=== PATIENT | female | born 1940 | race Caucasian/White ===

== ENCOUNTER 2017-01-21 11:50 | Emergency (ER) | payer MEDICARE ==
[~2017-01-21] VITALS: Ht 172.7 cm; Wt 65.0 kg
[~2017-01-21 11:50] MED LIST: ACET325S8 PO; ALPR.25 PO; AMBI5TAB PO; ASPI325T PO; CETI10 PO; CYCL-36 PO; CYMB30CA PO; DOCU1CAP39 PO; DUONI NEB; FLUT50SP EACH NARE; FURO20 PO; GABA300 PO; LORTA5 PO; MIRA33502 PO; MORP30SU PO; NORC10TA2 PO; ONDA4 PO; OXYC20 PO; POTA10TA2 PO; ROBISYP6 PO; SENN8.6T15 PO; [UNRECOGNIZED DRUG - CODE] PO
[2017-01-21 11:54] VITALS: BP 170/75; PULSE 88; RESP 20; TEMP 98.3; O2SAT 95
[2017-01-21 12:01] VITALS: BP 170/75; PULSE 89; RESP 20; TEMP 98.3; O2SAT 99
[2017-01-21] MEDS ORDERED: DULO20 PO (12:05)
[2017-01-21] MEDS ORDERED: OXYC-404 PO (12:05)
[2017-01-21] MEDS ORDERED: CYCL1TAB29 PO (12:05)
[2017-01-21] MEDS ORDERED: MORP1TAB25 PO (12:05)
--- NOTE | 2017-01-21 12:13 | PD ---
HPI Chief Complaint: Chest Pain Time Seen by Provider: 11:59 (Donna Koehler MD) Travel History International Travel<30 days: No Contact w/Intl Traveler<30days: No Traveled to known affect area: No (Donna Koehler MD) History of Present Illness HPI This is a 77 year old female who presents to the emergency department with sharp intermittent chest pain, radiating down her left arm, associated with some shortness of breath lasting for several days. At first she thought it was indigestion but it has been worsening. Currently she has no chest pain in the emergency department. Pt. reports that she also has pain in her right calf. Pt. smokes 1 pack/day for 50 years. (Donna Koehler MD) PFSH Past Medical History Anxiety: Yes Depression: Yes Cancer: No Cardiovascular Problems: No Diabetes: No Diminished Hearing: No Endocrine: No Gastrointestinal Disorders: No Genitourinary: No Hepatitis: No Hiatal Hernia: No Hypertension: No Immune Disorder: No Implanted Vascular Access Dvce: Yes Insomnia: Yes Musculoskeletal: Yes (OA) Neurologic: No Psychiatric: Yes Reproductive: No Respiratory: No Thyroid Disease: No Menopausal: Yes (Donna Koehlre MD) Past Surgical History Abdominal Surgery: No AICD: No Body Medical Devices: SHANAE AND 2 SCREWS L HIP Cardiac Surgery: No Ear Surgery: No Endocrine Surgery: No Eye Surgery: No Genitourinary Surgery: No Gynecologic Surgery: Yes (THS) Hysterectomy: Yes Joint Replacement: Yes Oral Surgery: No Pacemaker: No Thoracic Surgery: No Other Surgery: Yes (3RD DEGREE MANCERA OVER 75% WITH MULTIPLE SX) (Donna Koehler MD) Social History Alcohol Use: No Tobacco Use: Yes (1 ppd) Substance Use: No (Donna Koehler MD) Allergies-Medications (Allergen,Severity, Reaction): Coded Allergies: divalproex sodium (Unverified Allergy, Severe, sever mental changes, ) ketorolac (Unverified Allergy, Severe, vomit, 12/18/16) Reported Meds & Prescriptions Reported Meds & Active Scripts Active Reported Flexeril (Cyclobenzaprine HCl) 10 Mg Tab 10 Mg PO BID Cymbalta DR (Duloxetine HCl) 20 Mg Capdr 10 Mg PO BID Morphine ER (Morphine Sulfate) 30 Mg Tab 30 Mg PO BID Oxycodone ER (Oxycodone HCl) 10 Mg Tab 10 Mg PO Q6HR (Mirna Engel MD R1) Review of Systems Except as stated in HPI: all other systems reviewed are Neg (Donna Koehler MD) Physical Exam Narrative GENERAL:Frail SKIN: Focused skin assessment warm and dry. HEAD: Atraumatic. Normocephalic. EYES: Pupils equal and round. No injection or drainage. ENT: Moist mucous membranes NECK: Trachea midline. CARDIOVASCULAR: Regular rate and rhythm. No murmur appreciated. RESPIRATORY: Clear to auscultation. Breath sounds equal bilaterally. GASTROINTESTINAL: Abdomen soft, non-tender, nondistended. MUSCULOSKELETAL:Tender to palpation along the right calf. NEUROLOGICAL: Awake and alert. No obvious cranial nerve deficits. Moving all extremities. PSYCHIATRIC: Appropriate mood and affect; insight and judgment normal. (Donna Koehler MD) Data Data Last Documented VS Vital Signs Date Time Temp Pulse Resp B/P (MAP) Pulse Ox O2 Delivery O2 Flow Rate FiO2 01/21/17 12:43 77 20 170/75 (106) 156/70 (98) 01/21/17 12:25 Room Air 01/21/17 12:25 99 01/21/17 12:01 98.3 (Mirna Engel MD R1) Orders Orders Electrocardiogram (01/21/17 12:05) Complete Blood Count With Diff (01/21/17 12:05) Comprehensive Metabolic Panel (01/21/17 12:05) D-Dimer (01/21/17 12:05) Prothrombin Time / Inr (Pt) (01/21/17 12:05) Act Partial Throm Time (Ptt) (01/21/17 12:05) Troponin I (01/21/17 12:05) Chest, Single Ap (01/21/17 12:05) Ecg Monitoring (01/21/17 12:05) Bilateral Bp Monitoring (01/21/17 12:05) Iv Access Insert/Monitor (01/21/17 12:05) Oximetry (01/21/17 12:05) Oxygen Administration (01/21/17 12:05) Sodium Chloride 0.9% Flush (Ns Flush) (01/21/17 12:15) Aspirin Chew (Aspirin Chew) (01/21/17 12:15) Ct Pulmonary Angiogram (01/21/17 ) Morphine Inj (Morphine Inj) (01/21/17 13:45) Iohexol 350 Inj (Omnipaque 350 Inj) (01/21/17 13:59) Admit Order (Ed Use Only) (01/21/17 14:41) (Mirna Engel MD R1) Labs Laboratory Tests Test 01/21/17 12:13 White Blood Count 4.9 TH/MM3 Red Blood Count 4.19 MIL/MM3 Hemoglobin 12.4 GM/DL Hematocrit 37.6 % Mean Corpuscular Volume 89.7 FL Mean Corpuscular Hemoglobin 29.6 PG Mean Corpuscular Hemoglobin Concent 33.0 % Red Cell Distribution Width 17.2 % Platelet Count 184 TH/MM3 Mean Platelet Volume 7.7 FL Neutrophils (%) (Auto) 60.0 % Lymphocytes (%) (Auto) 29.5 % Monocytes (%) (Auto) 6.0 % Eosinophils (%) (Auto) 3.4 % Basophils (%) (Auto) 1.1 % Neutrophils # (Auto) 2.9 TH/MM3 Lymphocytes # (Auto) 1.4 TH/MM3 Monocytes # (Auto) 0.3 TH/MM3 Eosinophils # (Auto) 0.2 TH/MM3 Basophils # (Auto) 0.1 TH/MM3 CBC Comment AUTO DIFF Differential Comment AUTO DIFF CONFIRMED Prothrombin Time 10.3 SEC Prothromb Time International Ratio 0.9 RATIO Activated Partial Thromboplast Time 26.1 SEC D-Dimer Quantitative (PE/DVT) 1.53 MG/L FEU Blood Urea Nitrogen 11 MG/DL Creatinine 0.38 MG/DL Random Glucose 96 MG/DL Total Protein 6.6 GM/DL Albumin 3.6 GM/DL Calcium Level 8.6 MG/DL Alkaline Phosphatase 74 U/L Aspartate Amino Transf (AST/SGOT) 22 U/L Alanine Aminotransferase (ALT/SGPT) 16 U/L Total Bilirubin 0.3 MG/DL Sodium Level 138 MEQ/L Potassium Level 3.7 MEQ/L Chloride Level 103 MEQ/L Carbon Dioxide Level 29.0 MEQ/L Anion Gap 6 MEQ/L Estimat Glomerular Filtration Rate 164 ML/MIN Troponin I LESS THAN 0.02 NG/ML (Mirna Engel MD R1) MDM Medical Decision Making Medical Screen Exam Complete: Yes Emergency Medical Condition: No Differential Diagnosis CA vs pulmonary embolism vs pneumonia Narrative Course D-dimer elevated, CT angiography negative. CXR negative. EKG negative, troponin wnl. Recommended that patient stay longer for further observation of possible CA. Patient had understanding and full-decisional capacity. She still requested to go home and started complaining about groin pain and back pain. She was discharge and will follow-up with her PCP. (Mirna Engel MD R1) Diagnosis Primary Impression: Chest pain Patient Instructions: General Instructions Additional Instructions: We haven't completely evaluated patient for heart attack. Please come back to ER if symptoms are not improving. Med/Other Pt SpecificInfo: No Change to Meds (Mirna Engel MD R1) Disposition: 01 DISCHARGE HOME Condition: Stable Donna Koehler MD Jan 21, 2017 12:01 Mirna Engel MD R1 Jan 21, 2017 14:49 Michael Maurer Jan 21, 2017 14:51
[2017-01-21] MEDS ORDERED: SODIUM CHLORIDE 0.9% FLUSH 10 ML FLUSH IVF PRN (12:15)
[2017-01-21] MEDS ORDERED: ASPIRIN 81 MG CHEW TAB CHEW ONE (12:15)
[2017-01-21 12:26] LABS: AUTOMATED NEUTROPHIL # 2.9 TH/MM3 (1.8-7.7); BASOPHIL # 0.1 TH/MM3 (0-0.2); BASOPHIL % 1.1 % (0.0-2.0); EOSINOPHIL # 0.2 TH/MM3 (0-0.4); EOSINOPHIL % 3.4 % (0.0-4.0); HEMATOCRIT 37.6 % (35.0-46.0); LYMPH % 29.5 % (9.0-44.0); LYMPHOCYTE # 1.4 TH/MM3 (1.0-4.8); MEAN CELL VOLUME 89.7 FL (80.0-100.0); MEAN CORPUSCULAR HEMOGLOBIN 29.6 PG (27.0-34.0); PLATELET COUNT 184 TH/MM3 (150-450); RED BLOOD COUNT 4.19 MIL/MM3 (4.00-5.30); RED CELL DISTRIBUTION WIDTH 17.2 % (11.6-17.2); WHITE BLOOD COUNT 4.9 TH/MM3 (4.0-11.0)
[2017-01-21 12:28] LABS: HEMO FLAGS AUTO DIFF
[2017-01-21 12:37] LABS: APTT (PATIENT) 26.1 SEC (24.3-30.1); INTERNATIONAL NORMALIZED RATIO 0.9 RATIO; PROTHROMBIN TIME - PATIENT 10.3 SEC (9.8-11.6)
[2017-01-21 12:43] VITALS: BP_SYST 156; BP_SYST 170; BP_DIAS 70; BP_DIAS 75; PULSE 77; RESP 20
[2017-01-21 12:44] LABS: ANION GAP 6 MEQ/L (5-15); AST (GOT) 22 U/L (15-37); BLOOD UREA NITROGEN 11 MG/DL (7-18); CHLORIDE 103 MEQ/L (98-107); GLOMERULAR FILTRATION RATE 164 ML/MIN (>89); POTASSIUM 3.7 MEQ/L (3.5-5.1); SODIUM (NA) 138 MEQ/L (136-145)
[2017-01-21 12:49] LABS: ALKALINE PHOSPHATASE 74 U/L (45-117); ALT (GPT) 16 U/L (10-53); TOTAL BILIRUBIN ADULT 0.3 MG/DL (0.2-1.0)
[2017-01-21 13:07] LABS: SCAN/DIFF AUTO DIFF CONFIRMED
--- NOTE | 2017-01-21 13:27 | RADRPT ---
EXAM DATE/TIME: 01/21/2017 13:01 [facility] COMPARISON: CHEST SINGLE AP, November 30, 2015, 10:00. INDICATIONS : Pain in chest and groin, short of breath, pain in kidneys MEDICAL HISTORY : None. SURGICAL HISTORY : hip ENCOUNTER: Initial ACUITY: 3 days PAIN SCORE: 6/10 LOCATION: Bilateral chest FINDINGS: Portable AP view of the chest demonstrates a normal-sized cardiac silhouette. No effusion, consolidat ion, or pneumothorax is visualized. The bones and soft tissues demonstrate no acute abnormality. CONCLUSION: No acute cardiopulmonary abnormality is identified. Robin Littlejohn MD on January 21, 2017 at 13:25 Board Certified Radiologist. This report was verified electronically.
[2017-01-21] MEDS ORDERED: MORPHINE SULFATE 4 MG/ML INJ IV PUSH ONE (13:45)
[2017-01-21] MEDS ORDERED: IOHEXOL 350 MG/ML 10 ML VIAL (for RAD DIAG) IVCONTRAST ONE (13:59)
--- NOTE | 2017-01-21 14:26 | RADRPT ---
EXAM DATE/TIME: 01/21/2017 13:51 [facility] COMPARISON: CT PULMONARY ANGIOGRAM, November 06, 2013, 2:32. INDICATIONS : Chest pain and shortness of breath for two days. IV CONTRAST: 50 cc Omnipaque 350 (iohexol) IV RADIATION DOSE: 5.35 CTDIvol (mGy) MEDICAL HISTORY : None SURGICAL HISTORY : Hysterectomy. ENCOUNTER: Initial ACUITY: 2 days PAIN SCALE: 6/10 LOCATION: Bilateral chest TECHNIQUE: Volumetric scanning of the chest was performed using a pulmonary embolism protocol MIP images were re constructed. Using automated exposure control and adjustment of the mA and/or kV according to patien t size, radiation dose was kept as low as reasonably achievable to obtain optimal diagnostic quality images. DICOM format image data is available electronically for review and comparison. Follow-up recommendations for detected pulmonary nodules are based at a minimum on nodule size and pa tient risk factors according to Fleischner Society Guidelines. FINDINGS: PULMONARY ARTERIES: No filling defects are seen in the pulmonary arteries through the segmental level. LUNGS: There is no consolidation or pneumothorax . No concerning pulmonary nodule is visualized. PLEURAE: There is no pleural thickening or pleural effusion. MEDIASTINUM: There is good visualization of the great vessels of the middle mediastinum. No evidence of mediastin al or hilar adenopathy/mass. MUSCULOSKELETAL: Mild degenerative changes are noted. MISCELLANEOUS: The visualized upper abdominal organs demonstrate no acute abnormality. CONCLUSION: Negative for central pulmonary emboli. Madi Simmons MD FACR on January 21, 2017 at 14:17 Board Certified Radiologist. This report was verified electronically.
--- NOTE | 2017-01-21 15:45 | PD ---
Data Data Last Documented VS Vital Signs Date Time Temp Pulse Resp B/P (MAP) Pulse Ox O2 Delivery O2 Flow Rate FiO2 01/21/17 12:43 77 20 170/75 (106) 156/70 (98) 01/21/17 12:25 Room Air 01/21/17 12:25 99 01/21/17 12:01 98.3 Orders Orders Electrocardiogram (01/21/17 12:05) Complete Blood Count With Diff (01/21/17 12:05) Comprehensive Metabolic Panel (01/21/17 12:05) D-Dimer (01/21/17 12:05) Prothrombin Time / Inr (Pt) (01/21/17 12:05) Act Partial Throm Time (Ptt) (01/21/17 12:05) Troponin I (01/21/17 12:05) Chest, Single Ap (01/21/17 12:05) Ecg Monitoring (01/21/17 12:05) Bilateral Bp Monitoring (01/21/17 12:05) Iv Access Insert/Monitor (01/21/17 12:05) Oximetry (01/21/17 12:05) Oxygen Administration (01/21/17 12:05) Sodium Chloride 0.9% Flush (Ns Flush) (01/21/17 12:15) Aspirin Chew (Aspirin Chew) (01/21/17 12:15) Ct Pulmonary Angiogram (01/21/17 ) Morphine Inj (Morphine Inj) (01/21/17 13:45) Iohexol 350 Inj (Omnipaque 350 Inj) (01/21/17 13:59) Admit Order (Ed Use Only) (01/21/17 14:41) Labs Laboratory Tests Test 01/21/17 12:13 White Blood Count 4.9 TH/MM3 Red Blood Count 4.19 MIL/MM3 Hemoglobin 12.4 GM/DL Hematocrit 37.6 % Mean Corpuscular Volume 89.7 FL Mean Corpuscular Hemoglobin 29.6 PG Mean Corpuscular Hemoglobin Concent 33.0 % Red Cell Distribution Width 17.2 % Platelet Count 184 TH/MM3 Mean Platelet Volume 7.7 FL Neutrophils (%) (Auto) 60.0 % Lymphocytes (%) (Auto) 29.5 % Monocytes (%) (Auto) 6.0 % Eosinophils (%) (Auto) 3.4 % Basophils (%) (Auto) 1.1 % Neutrophils # (Auto) 2.9 TH/MM3 Lymphocytes # (Auto) 1.4 TH/MM3 Monocytes # (Auto) 0.3 TH/MM3 Eosinophils # (Auto) 0.2 TH/MM3 Basophils # (Auto) 0.1 TH/MM3 CBC Comment AUTO DIFF Differential Comment AUTO DIFF CONFIRMED Prothrombin Time 10.3 SEC Prothromb Time International Ratio 0.9 RATIO Activated Partial Thromboplast Time 26.1 SEC D-Dimer Quantitative (PE/DVT) 1.53 MG/L FEU Blood Urea Nitrogen 11 MG/DL Creatinine 0.38 MG/DL Random Glucose 96 MG/DL Total Protein 6.6 GM/DL Albumin 3.6 GM/DL Calcium Level 8.6 MG/DL Alkaline Phosphatase 74 U/L Aspartate Amino Transf (AST/SGOT) 22 U/L Alanine Aminotransferase (ALT/SGPT) 16 U/L Total Bilirubin 0.3 MG/DL Sodium Level 138 MEQ/L Potassium Level 3.7 MEQ/L Chloride Level 103 MEQ/L Carbon Dioxide Level 29.0 MEQ/L Anion Gap 6 MEQ/L Estimat Glomerular Filtration Rate 164 ML/MIN Troponin I LESS THAN 0.02 NG/ML MDM Supervised Visit with [facility]O: No Narrative Course The history, exam, and medical decision-making in the associated Resident provider note were completed with my assistance. I reviewed and agree with the findings presented. I attest that I had a [id number] encounter with the patient on the same day, and personally performed and documented my assessment and findings in the medical record. *My assessment and Findings: This is a 77-year-old female who presents to the emergency department with chest pain with some shortness of breath and pleuritic component is been going on for several days associated with a cough. The resident physician's saw the patient. Ultimately she was worked up for acute coronary syndrome, pneumonia and a d-dimer was elevated so we obtained a CT pulmonary angiogram which was negative. I went into see the patient and the patient really wanted to go home. She didn't want any additional evaluation. Now she is reporting that she has right groin pain that was not evaluated but she doesn't want to stay to have it evaluated she just wants to go follow-up with her primary care physician. I explained to her that given her current workup we are unable to evaluate for myocardial infarction. She expressed understanding of this. She has decision-making capacity. I will discharge the patient to have her follow up with her primary care physician. Diagnosis Primary Impression: Chest pain Patient Instructions: General Instructions Departure Forms: Tests/Procedures Additional Instruction: We haven't completely evaluated patient for heart attack. Please come back to ER if symptoms are not improving. Disposition: 07 AGAINST MEDICAL ADVICE Condition: Stable Donna Koehler MD Jan 21, 2017 15:45
--- NOTE | 2017-01-22 14:17 | EKG ---
Date Performed: 01/21/2017 Time Performed: 11:52:03 PTAGE: 77 years EKG: Sinus rhythm NORMAL ECG NO PREVIOUS TRACING DOCTOR: Errol Cordero Interpretating Date/Time 01/22/2017 14:12:53
== END 2017-01-21 15:40 | disposition left against medical advice (07) ==
LOC: NEPE 11:50 → NEDA 14:42 → UNDOADMOB 14:42 → UNDODISOB 15:26
DX: R07.9 Chest pain, unspecified (principal); M79.602 Pain in left arm; R06.02 Shortness of breath; R05 Cough; M79.661 Pain in right lower leg; R10.31 Right lower quadrant pain; F17.200 Nicotine dependence, unspecified, uncomplicated; Z86.59 Personal history of other mental and behavioral disorders; Z87.39 Personal history of other diseases of the musculoskeletal system and connective tissue
CPT/HCPCS: 71010; 71275; 80053; 84484; 85025; 85379; 85610; 85730; 93005; 96374; 99285; J2270; Q9967

== ENCOUNTER 2017-09-04 15:10 | Observation (INO) | payer MEDICARE ==
[2017-09-04] MEDS: IOHEXOL 350 MG/ML 10 ML VIAL (for RAD DIAG) IVCONTRAST (15:11)
[2017-09-04 15:52] LABS: BASOPHIL # 0.1 TH/MM3 (0-0.2); BASOPHIL % 0.8 % (0.0-2.0); EOSINOPHIL # 0.1 TH/MM3 (0-0.4); HEMATOCRIT 37.7 % (35.0-46.0); HEMO FLAGS DIFF FINAL; HEMOGLOBIN 12.8 GM/DL (11.6-15.3); LYMPHOCYTE # 2.8 TH/MM3 (1.0-4.8); MEAN CELL VOLUME 91.7 FL (80.0-100.0); MEAN CORPUSCULAR HEMOGLOBIN 31.2 PG (27.0-34.0); MEAN PLATELET VOLUME 7.9 FL (7.0-11.0); MONO % 6.4 % (0.0-8.0); MONOCYTE # 0.4 TH/MM3 (0-0.9); NEUT % 46.8 % (16.0-70.0); PLATELET COUNT 245 TH/MM3 (150-450); RED BLOOD COUNT 4.11 MIL/MM3 (4.00-5.30); RED CELL DISTRIBUTION WIDTH 16.5 % (11.6-17.2); WHITE BLOOD COUNT 6.4 TH/MM3 (4.0-11.0)
[2017-09-04 15:58] LABS: APTT (PATIENT) 24.3 SEC (24.3-30.1); PROTHROMBIN TIME - PATIENT 9.9 SEC (9.8-11.6)
[2017-09-04 16:17] LABS: ALBUMIN 3.4 GM/DL (3.4-5.0); ALT (GPT) 27 U/L (10-53); ANION GAP 7 MEQ/L (5-15); AST (GOT) 25 U/L (15-37); BICARBONATE 26.7 MEQ/L (21.0-32.0); BLOOD UREA NITROGEN 11 MG/DL (7-18); CALCIUM 8.9 MG/DL (8.5-10.1); CHLORIDE 106 MEQ/L (98-107); CREATININE 0.47 MG/DL (0.50-1.00); GLOMERULAR FILTRATION RATE 128 ML/MIN (>89); GLUCOSE,RANDOM 84 MG/DL (74-106); LIPASE 57 U/L (73-393); MAGNESIUM 2.2 MG/DL (1.5-2.5); POTASSIUM 3.7 MEQ/L (3.5-5.1); SODIUM (NA) 140 MEQ/L (136-145)
[2017-09-04 16:21] LABS: ALKALINE PHOSPHATASE 89 U/L (45-117); TOTAL BILIRUBIN ADULT 0.3 MG/DL (0.2-1.0); TOTAL PROTEIN 6.6 GM/DL (6.4-8.2); TROPONIN I LESS THAN 0.02 NG/ML (0.02-0.05)
[2017-09-04 16:27] LABS: CREATINE KINASE 41 U/L (26-192)
[2017-09-04] MEDS: MORPHINE SULFATE 4 MG/ML INJ IV PUSH ×2 (17:04→20:48)
[2017-09-04] MEDS: SODIUM CHLORIDE 0.9% FLUSH 10 ML FLUSH IVF (17:05)
[2017-09-04] MEDS ORDERED: MORPHINE SULFATE 4 MG/ML INJ IV PUSH ×2 (20:00→23:00)
[2017-09-04] MEDS ORDERED: ACETAMINOPHEN/HYDROcodone 325 MG/7.5 MG TAB PO (20:00)
[2017-09-04] MEDS ORDERED: NITROGLYCERIN 0.4 MG SL 25 TABS/BTL SL (20:00)
[2017-09-04] MEDS ORDERED: SODIUM CHLOR 0.9% 1000 ML INJ 1,000 ML IV (20:00)
[2017-09-04] MEDS: oxyCODONE HCL 10 MG CONTROLLED RELEASE TAB PO (20:44)
[2017-09-04] MEDS: SODIUM CHLORIDE 0.9% FLUSH 10 ML FLUSH IV FLUSH (20:48)
[2017-09-04] MEDS ORDERED: DULoxetine HCl DR 20 MG CAP PO (21:00)
[2017-09-04] MEDS ORDERED: LACTULOSE SYRUP 20 GM/30 ML CUP PO (21:15)
[2017-09-04] MEDS ORDERED: BISACODYL 10 MG SUPP RECTAL (21:15)
[2017-09-04] MEDS ORDERED: SENNOSIDES 8.6 MG TAB PO (21:15)
[2017-09-04] MEDS: CYCLOBENZAPRINE HCL 10 MG TAB PO (21:39)
[2017-09-04] MEDS: FAMOTIDINE 20 MG TAB PO (21:39)
[2017-09-04] MEDS: MORPHINE SULFATE 30 MG CONTROLLED RELEASE TAB PO (21:39)
[2017-09-04] MEDS: SOD PHOSPHATE/SOD BIPHOSPHATE (ADULT) ENEMA 133ML RECTAL (21:40)
[2017-09-04] MEDS: SODIUM CHLOR 0.9% 1000 ML INJ 1,000 ML IV (22:36)
[2017-09-04 23:50] LABS: TROPONIN I LESS THAN 0.02 NG/ML (0.02-0.05)
[2017-09-04 23:51] LABS: CREATINE KINASE 39 U/L (26-192)
[2017-09-05] MEDS: HYDROmorphone HCL PF 0.5 MG/0.5 ML SYRINGE IV PUSH ×4 (01:38→16:45)
[2017-09-05] MEDS: DOCUSATE SODIUM 50 MG/SENNA 8.6 MG TAB PO ×2 (07:56→21:54)
[2017-09-05] MEDS: FAMOTIDINE 20 MG TAB PO ×2 (07:56→21:54)
[2017-09-05] MEDS: CYCLOBENZAPRINE HCL 10 MG TAB PO ×2 (07:56→21:54)
[2017-09-05] MEDS: MORPHINE SULFATE 30 MG CONTROLLED RELEASE TAB PO ×2 (07:57→21:54)
[2017-09-05] MEDS: SODIUM CHLOR 0.9% 1000 ML INJ 1,000 ML IV (07:59)
[2017-09-05 10:10] LABS: AUTOMATED NEUTROPHIL # 2.8 TH/MM3 (1.8-7.7); BASOPHIL % 0.9 % (0.0-2.0); EOSINOPHIL # 0.1 TH/MM3 (0-0.4); EOSINOPHIL % 1.9 % (0.0-4.0); HEMATOCRIT 40.2 % (35.0-46.0); HEMO FLAGS DIFF FINAL; HEMOGLOBIN 13.4 GM/DL (11.6-15.3); LYMPH % 39.6 % (9.0-44.0); LYMPHOCYTE # 2.2 TH/MM3 (1.0-4.8); MEAN CELL VOLUME 91.4 FL (80.0-100.0); MEAN CORPUSCULAR HEMOGLOBIN 30.5 PG (27.0-34.0); MEAN CORPUSCULAR HGB CONC 33.4 % (32.0-36.0); MEAN PLATELET VOLUME 7.9 FL (7.0-11.0); MONO % 7.4 % (0.0-8.0); MONOCYTE # 0.4 TH/MM3 (0-0.9); NEUT % 50.2 % (16.0-70.0); PLATELET COUNT 263 TH/MM3 (150-450); RED CELL DISTRIBUTION WIDTH 16.2 % (11.6-17.2); WHITE BLOOD COUNT 5.5 TH/MM3 (4.0-11.0)
[2017-09-05 10:17] LABS: ANION GAP 7 MEQ/L (5-15); BICARBONATE 28.8 MEQ/L (21.0-32.0); BLOOD UREA NITROGEN 8 MG/DL (7-18); CALCIUM 8.8 MG/DL (8.5-10.1); CHLORIDE 101 MEQ/L (98-107); GLOMERULAR FILTRATION RATE 155 ML/MIN (>89); GLUCOSE,RANDOM 75 MG/DL (74-106); POTASSIUM 3.6 MEQ/L (3.5-5.1); SODIUM (NA) 137 MEQ/L (136-145)
[2017-09-05 10:22] LABS: TROPONIN I LESS THAN 0.02 NG/ML (0.02-0.05)
[2017-09-05 10:28] LABS: CREATINE KINASE 37 U/L (26-192)
[2017-09-05] MEDS: DULoxetine HCl DR 30 MG CAP PO ×2 (11:20→21:53)
[2017-09-05] MEDS: PHENYLEPH/NS 1000 MCG/10 ML SYR IV (12:00)
[2017-09-05] MEDS: PROPOFOL 200 MG/20 ML AMP IV (12:00)
[2017-09-05] MEDS: LIDOCAINE HCL 1% PF 5 ML SYRINGE OTHER (12:00)
[2017-09-05] MEDS: SOD PHOSPHATE/SOD BIPHOSPHATE (ADULT) ENEMA 133ML RECTAL (12:30)
[2017-09-05] MEDS ORDERED: LACTATED RINGER'S 1000 ML IV (12:45)
[2017-09-05] MEDS ORDERED: METOPROLOL TARTRATE 25 MG TAB PO (12:45)
[2017-09-05] MEDS ORDERED: CHLORHEXIDINE GLUCONATE 2 % 1 PACK (2 CLOTHS) TOPICAL (12:45)
[2017-09-05] MEDS ORDERED: SODIUM CHLORID 0.9% 500 ML IV (12:45)
[2017-09-05] MEDS ORDERED: POVIDONE IODINE 5% (ANTISEPSIS KIT) 4 APPLICATIONS EACH NARE (12:45)
[2017-09-05] MEDS: IOHEXOL 300 MG/ML 100 ML BTL (for Rad CT) OTHER (13:15)
[2017-09-05] MEDS: SINCALIDE 5 MCG/5 ML VIAL IV PUSH (13:15)
[2017-09-05] MEDS: ceFAZolin INJ 1,000 MG VIAL IV (13:15)
[2017-09-05] MEDS ORDERED: STERILE WATER FOR INJECTION 20 ML VIAL (13:21)
[2017-09-05] MEDS: INDOMETHACIN 50 MG SUPP RECTAL (14:15)
[2017-09-05] MEDS ORDERED: DO NOT ADM ANY ANTICOAGULANT DRUGS (14:30)
[2017-09-06] MEDS: SODIUM CHLOR 0.9% 1000 ML INJ 1,000 ML IV ×3 (00:40→16:08)
[2017-09-06] MEDS: MAGNESIUM HYDROXIDE SUSP 30 ML CUP PO (01:59)
[2017-09-06 06:25] LABS: ALBUMIN 3.6 GM/DL (3.4-5.0); ALKALINE PHOSPHATASE 104 U/L (45-117); ALT (GPT) 73 U/L (10-53); AST (GOT) 92 U/L (15-37); DIRECT BILIRUBIN ADULT 0.3 MG/DL (0.0-0.2); INDIRECT BILIRUBIN 0.6 MG/DL (0.0-0.8); TOTAL BILIRUBIN ADULT 0.9 MG/DL (0.2-1.0); TOTAL PROTEIN 6.9 GM/DL (6.4-8.2)
[2017-09-06] MEDS: FAMOTIDINE 20 MG TAB PO ×2 (08:43→20:07)
[2017-09-06] MEDS: DULoxetine HCl DR 30 MG CAP PO ×2 (08:44→20:07)
[2017-09-06] MEDS: MORPHINE SULFATE 30 MG CONTROLLED RELEASE TAB PO ×2 (08:44→20:08)
[2017-09-06] MEDS: DOCUSATE SODIUM 50 MG/SENNA 8.6 MG TAB PO ×2 (08:44→20:07)
[2017-09-06] MEDS: CYCLOBENZAPRINE HCL 10 MG TAB PO ×2 (08:44→20:07)
[2017-09-06] MEDS: HYDROmorphone HCL PF 0.5 MG/0.5 ML SYRINGE IV PUSH ×5 (08:47→23:57)
[2017-09-06] MEDS ORDERED: NYSTATIN 100,000 U/GM PWD 15 GM BTL TOPICAL (11:00)
[2017-09-06] MEDS: MAGNESIUM CITRATE SOLN 300 ML BTL PO (11:00)
[2017-09-06] MEDS ORDERED: METOPROLOL TARTRATE 25 MG TAB PO (17:45)
[2017-09-06] MEDS ORDERED: CHLORHEXIDINE GLUCONATE 2 % 1 PACK (2 CLOTHS) TOPICAL (17:45)
[2017-09-06] MEDS ORDERED: SODIUM CHLORID 0.9% 500 ML IV (17:45)
[2017-09-06] MEDS ORDERED: LACTATED RINGER'S 1000 ML IV (17:45)
[2017-09-06] MEDS ORDERED: POVIDONE IODINE 5% (ANTISEPSIS KIT) 4 APPLICATIONS EACH NARE (17:45)
[2017-09-06] MEDS: SODIUM CHLORIDE 0.9% FLUSH 10 ML FLUSH IV FLUSH (20:09)
[2017-09-07] MEDS: HYDROmorphone HCL PF 0.5 MG/0.5 ML SYRINGE IV PUSH ×5 (05:28→23:04)
[2017-09-07] MEDS: SODIUM CHLOR 0.9% 1000 ML INJ 1,000 ML IV (06:36)
[2017-09-07] MEDS: LIDOCAINE 1%/EPINEPHrine 1:100,000 SOLN 30 ML VIAL (07:29)
[2017-09-07] MEDS: ceFAZolin INJ 1,000 MG VIAL IV ×2 (08:24→12:00)
[2017-09-07] MEDS: BUPIVACAINE/EPINEPHRINE 0.5% PF 10 ML VIAL (08:28)
[2017-09-07] MEDS: SUGAMMADEX SODIUM 200 MG/2 ML VIAL IV PUSH (09:56)
[2017-09-07] MEDS: ACETAMINOPHEN 1000 MG/100 ML 100 ML IV (09:56)
[2017-09-07] MEDS ORDERED: DO NOT ADM ANY ANTICOAGULANT DRUGS (10:29)
[2017-09-07] MEDS: *morphine SULFATE 4 MG/ML PERIprocedure ONLY (10:54)
[2017-09-07] MEDS: DOCUSATE SODIUM 50 MG/SENNA 8.6 MG TAB PO ×2 (11:22→21:25)
[2017-09-07] MEDS: FAMOTIDINE 20 MG TAB PO ×2 (11:22→21:25)
[2017-09-07] MEDS: MORPHINE SULFATE 30 MG CONTROLLED RELEASE TAB PO ×2 (11:22→21:25)
[2017-09-07] MEDS: CYCLOBENZAPRINE HCL 10 MG TAB PO ×2 (11:23→21:25)
[2017-09-07] MEDS: DULoxetine HCl DR 30 MG CAP PO ×2 (11:23→21:24)
[2017-09-07] MEDS: LABETALOL HCL 100 MG/20 ML VIAL IV (12:00)
[2017-09-07] MEDS: ROCURONIUM INJ 50 MG/5 ML SYRINGE IV PUSH (12:00)
[2017-09-07] MEDS: PHENYLEPH/NS 1000 MCG/10 ML SYR IV (12:00)
[2017-09-07] MEDS: ePHEDrine/NS 25 MG/5 ML SYRINGE IV (12:00)
[2017-09-07] MEDS: ONDANSETRON HCL 4 MG/2 ML VIAL IV (12:00)
[2017-09-07] MEDS: GLYCOPYRROLATE 1 MG/5 ML SYRINGE IV PUSH (12:00)
[2017-09-07] MEDS: LIDOCAINE HCL 1% PF 5 ML SYRINGE OTHER (12:00)
[2017-09-07] MEDS: PROPOFOL 200 MG/20 ML AMP IV (12:00)
[2017-09-07] MEDS: DEXAMETHASONE SOD PHOS 4 MG/ML VIAL IV (12:00)
[2017-09-07] MEDS ORDERED: oxyCODONE/ACETAMINOPHEN 7.5 MG/325 MG TAB PO (14:15)
[2017-09-07] MEDS ORDERED: MORPHINE SULFATE 2 MG/ML SYRINGE IM (14:15)
[2017-09-07] MEDS: ACETAMINOPHEN 500 MG CPLT PO (22:38)
[2017-09-08] MEDS: HYDROmorphone HCL PF 0.5 MG/0.5 ML SYRINGE IV PUSH ×7 (02:12→21:13)
[2017-09-08 08:04] LABS: AUTOMATED NEUTROPHIL # 3.2 TH/MM3 (1.8-7.7); BASOPHIL % 0.4 % (0.0-2.0); EOSINOPHIL % 0.7 % (0.0-4.0); HEMOGLOBIN 11.5 GM/DL (11.6-15.3); LYMPH % 22.5 % (9.0-44.0); LYMPHOCYTE # 1.1 TH/MM3 (1.0-4.8); MEAN CELL VOLUME 90.4 FL (80.0-100.0); MEAN CORPUSCULAR HEMOGLOBIN 30.6 PG (27.0-34.0); MEAN CORPUSCULAR HGB CONC 33.8 % (32.0-36.0); MEAN PLATELET VOLUME 8.2 FL (7.0-11.0); MONO % 10.8 % (0.0-8.0); MONOCYTE # 0.5 TH/MM3 (0-0.9); NEUT % 65.6 % (16.0-70.0); PLATELET COUNT 188 TH/MM3 (150-450); RED BLOOD COUNT 3.76 MIL/MM3 (4.00-5.30); RED CELL DISTRIBUTION WIDTH 15.8 % (11.6-17.2); WHITE BLOOD COUNT 4.8 TH/MM3 (4.0-11.0)
[2017-09-08 08:15] LABS: HEMO FLAGS AUTO DIFF
[2017-09-08 08:28] LABS: ANION GAP 6 MEQ/L (5-15); BICARBONATE 29.9 MEQ/L (21.0-32.0); BLOOD UREA NITROGEN 6 MG/DL (7-18); CALCIUM 8.2 MG/DL (8.5-10.1); CHLORIDE 102 MEQ/L (98-107); CREATININE 0.32 MG/DL (0.50-1.00); GLOMERULAR FILTRATION RATE 200 ML/MIN (>89); GLUCOSE,RANDOM 116 MG/DL (74-106); POTASSIUM 3.3 MEQ/L (3.5-5.1); SODIUM (NA) 138 MEQ/L (136-145)
[2017-09-08] MEDS: MORPHINE SULFATE 30 MG CONTROLLED RELEASE TAB PO ×2 (08:54→21:13)
[2017-09-08] MEDS: DOCUSATE SODIUM 50 MG/SENNA 8.6 MG TAB PO ×2 (08:54→21:13)
[2017-09-08] MEDS: CYCLOBENZAPRINE HCL 10 MG TAB PO ×2 (08:54→21:13)
[2017-09-08] MEDS: FAMOTIDINE 20 MG TAB PO ×2 (08:54→21:13)
[2017-09-08] MEDS: DULoxetine HCl DR 30 MG CAP PO ×2 (08:54→21:12)
[2017-09-08] MEDS: SODIUM CHLOR 0.9% 1000 ML INJ 1,000 ML IV ×2 (08:58→21:12)
[2017-09-08 09:14] LABS: SCAN/DIFF AUTO DIFF CONFIRMED
[2017-09-08] MEDS: POTASSIUM CHLORIDE 10 MEQ CONTROLLED RELEASE TAB PO (15:23)
[2017-09-08] MEDS: CALCIUM CARBONATE 500 MG CHEWABLE TAB PO (17:37)
[2017-09-08] MEDS: ONDANSETRON ODT 4 MG TAB SL (17:37)
[2017-09-09] MEDS: HYDROmorphone HCL PF 0.5 MG/0.5 ML SYRINGE IV PUSH ×7 (00:12→21:34)
[2017-09-09 07:52] LABS: AUTOMATED NEUTROPHIL # 3.3 TH/MM3 (1.8-7.7); BASOPHIL % 0.4 % (0.0-2.0); EOSINOPHIL # 0.1 TH/MM3 (0-0.4); EOSINOPHIL % 2.4 % (0.0-4.0); HEMATOCRIT 33.8 % (35.0-46.0); HEMOGLOBIN 11.4 GM/DL (11.6-15.3); LYMPH % 26.2 % (9.0-44.0); LYMPHOCYTE # 1.4 TH/MM3 (1.0-4.8); MEAN CELL VOLUME 91.7 FL (80.0-100.0); MEAN CORPUSCULAR HGB CONC 33.8 % (32.0-36.0); MEAN PLATELET VOLUME 7.5 FL (7.0-11.0); MONO % 10.3 % (0.0-8.0); MONOCYTE # 0.6 TH/MM3 (0-0.9); NEUT % 60.7 % (16.0-70.0); PLATELET COUNT 169 TH/MM3 (150-450); RED BLOOD COUNT 3.69 MIL/MM3 (4.00-5.30); RED CELL DISTRIBUTION WIDTH 15.8 % (11.6-17.2); WHITE BLOOD COUNT 5.4 TH/MM3 (4.0-11.0)
[2017-09-09 07:55] LABS: HEMO FLAGS AUTO DIFF
[2017-09-09 08:23] LABS: ANION GAP 6 MEQ/L (5-15); BICARBONATE 30.1 MEQ/L (21.0-32.0); BLOOD UREA NITROGEN 5 MG/DL (7-18); CALCIUM 8.6 MG/DL (8.5-10.1); CHLORIDE 102 MEQ/L (98-107); CREATININE 0.31 MG/DL (0.50-1.00); GLOMERULAR FILTRATION RATE 208 ML/MIN (>89); GLUCOSE,RANDOM 97 MG/DL (74-106); POTASSIUM 3.6 MEQ/L (3.5-5.1); SODIUM (NA) 138 MEQ/L (136-145)
[2017-09-09] MEDS: FAMOTIDINE 20 MG TAB PO ×2 (08:30→20:23)
[2017-09-09] MEDS: DULoxetine HCl DR 30 MG CAP PO ×2 (08:30→20:23)
[2017-09-09] MEDS: DOCUSATE SODIUM 50 MG/SENNA 8.6 MG TAB PO ×2 (08:30→20:24)
[2017-09-09] MEDS: MAGNESIUM HYDROXIDE SUSP 30 ML CUP PO (08:30)
[2017-09-09] MEDS: MORPHINE SULFATE 30 MG CONTROLLED RELEASE TAB PO ×2 (08:30→20:23)
[2017-09-09] MEDS: SODIUM CHLOR 0.9% 1000 ML INJ 1,000 ML IV ×2 (08:30→20:25)
[2017-09-09] MEDS: CYCLOBENZAPRINE HCL 10 MG TAB PO ×2 (08:30→20:23)
[2017-09-09 08:44] LABS: PLATELET ESTIMATE SMEAR NORMAL (NORMAL); PLATELET MORPHOLOGY NORMAL (NORMAL); SCAN/DIFF AUTO DIFF CONFIRMED
[2017-09-09] MEDS ORDERED: HYDROmorphone HCL PF 0.5 MG/0.5 ML SYRINGE IV PUSH (17:30)
[2017-09-09] MEDS: ACETAMINOPHEN 500 MG CPLT PO (22:15)
[2017-09-10] MEDS: HYDROmorphone HCL PF 0.5 MG/0.5 ML SYRINGE IV PUSH ×4 (00:35→13:11)
[2017-09-10] MEDS: DOCUSATE SODIUM 50 MG/SENNA 8.6 MG TAB PO (09:45)
[2017-09-10] MEDS: DULoxetine HCl DR 30 MG CAP PO (09:45)
[2017-09-10] MEDS: FAMOTIDINE 20 MG TAB PO (09:45)
[2017-09-10] MEDS: CYCLOBENZAPRINE HCL 10 MG TAB PO (09:45)
[2017-09-10] MEDS: MORPHINE SULFATE 30 MG CONTROLLED RELEASE TAB PO (09:46)
[2017-09-10] MEDS: SODIUM CHLOR 0.9% 1000 ML INJ 1,000 ML IV (13:11)
== END 2017-09-10 15:43 | disposition home or self-care (01) ==
LOC: N07B 09-06 19:35 → NEPC 15:10 → NEDA 19:21 → NEPHCDU 20:59
DX: R19.04 Left lower quadrant abdominal swelling, mass and lump (principal); Q44.5 Other congenital malformations of bile ducts; K80.20 Calculus of gallbladder without cholecystitis without obstruction; K80.50 Calculus of bile duct without cholangitis or cholecystitis without obstruction; K66.0 Peritoneal adhesions (postprocedural) (postinfection); K82.8 Other specified diseases of gallbladder; K59.01 Slow transit constipation; K57.30 Diverticulosis of large intestine without perforation or abscess without bleeding; R63.4 Abnormal weight loss; M54.5 Low back pain; G89.29 Other chronic pain; F32.9 Major depressive disorder, single episode, unspecified; M19.90 Unspecified osteoarthritis, unspecified site; F17.210 Nicotine dependence, cigarettes, uncomplicated; Z79.891 Long term (current) use of opiate analgesic; Z90.710 Acquired absence of both cervix and uterus; Z96.649 Presence of unspecified artificial hip joint; Z96.651 Presence of right artificial knee joint; Z80.0 Family history of malignant neoplasm of digestive organs
CPT/HCPCS: 00790; 71045; 72170; 73552; 74177; 74181; 74330; 76377; 76999; 80048; 80053; 80076; 82550; 83690; 83735; 84484; 85025; 85610; 85730; 88304; 88305; 93005; 96361; 96374; 96376; 97110-GP; 97116-GP; 97161-GP; 99285-25

== ENCOUNTER 2017-10-10 11:30 | Emergency (ER) | payer MEDICARE ==
[~2017-10-10] VITALS: Ht 172.7 cm; Wt 61.0 kg
[~2017-10-10 11:30] MED LIST changes: -ACET325S8 PO; -ALPR.25 PO; -AMBI5TAB PO; -ASPI325T PO; -CETI10 PO; -CYCL-36 PO; +CYCL10TA PO; -CYMB30CA PO; -DOCU1CAP39 PO; +DULO20 PO; -DUONI NEB; +FAMO20TA2 PO; -FLUT50SP EACH NARE; -FURO20 PO; -GABA300 PO; -LORTA5 PO; -MIRA33502 PO; +MORP1TAB25 PO; -MORP30SU PO; -NORC10TA2 PO; -ONDA4 PO; +OXYC-404 PO; -OXYC20 PO; -POTA10TA2 PO; -ROBISYP6 PO; -SENN8.6T15 PO; -[UNRECOGNIZED DRUG - CODE] PO; +[UNRECOGNIZED DRUG - REMARK]
[2017-10-10 11:40] VITALS: BP 126/62; PULSE 86; RESP 22; TEMP 97.3; O2SAT 97
--- NOTE | 2017-10-10 12:33 | RADRPT ---
EXAM DATE: 10/10/2017 12:16 PM EDT AGE/SEX: 77 years / Female INDICATIONS: Chest pain. CLINICAL DATA: This is the patient's initial encounter. Patient reports that signs and symptoms have been present for 1 month and indicates a pain score of 8/10. MEDICAL/SURGICAL HISTORY: . was told 2 days ago that she has a mass in her colon., diarrhea for 1 month None. COMPARISON: [facility], CT PULMONARY ANGIOGRAM, 01/21/2017. [facility], CT ABDOMEN AND PELVIS W AND W/O CONTRA ST, 10/08/2017. [facility], XR CHEST PA AND LAT, 12/18/2016. . FINDINGS: PA and lateral views of the chest demonstrate a normal-sized cardiac silhouette. There is no effusion , consolidation, or pneumothorax. The bones and soft tissues demonstrate no acute abnormality. There is stable height loss at what I believe is T12. However, now demonstrates increased density. CONCLUSION: 1. No acute cardiopulmonary abnormality is identified. 2. Chronic height loss of one of the lower thoracic vertebral bodies, felt to represent T12. However , it now demonstrates increased density. Electronically signed by: Robin Littlejohn MD 10/10/2017 12:31 PM EDT
[2017-10-10 12:44] LABS: AUTOMATED NEUTROPHIL # 2.5 TH/MM3 (1.8-7.7); BASOPHIL % 0.6 % (0.0-2.0); EOSINOPHIL # 0.1 TH/MM3 (0-0.4); EOSINOPHIL % 1.8 % (0.0-4.0); HEMATOCRIT 39.9 % (35.0-46.0); HEMOGLOBIN 13.2 GM/DL (11.6-15.3); LYMPH % 36.2 % (9.0-44.0); LYMPHOCYTE # 1.6 TH/MM3 (1.0-4.8); MEAN CELL VOLUME 89.9 FL (80.0-100.0); MEAN CORPUSCULAR HEMOGLOBIN 29.7 PG (27.0-34.0); MEAN CORPUSCULAR HGB CONC 33.1 % (32.0-36.0); MEAN PLATELET VOLUME 7.5 FL (7.0-11.0); MONO % 5.7 % (0.0-8.0); MONOCYTE # 0.3 TH/MM3 (0-0.9); NEUT % 55.7 % (16.0-70.0); PLATELET COUNT 221 TH/MM3 (150-450); RED BLOOD COUNT 4.44 MIL/MM3 (4.00-5.30); RED CELL DISTRIBUTION WIDTH 17.9 % (11.6-17.2); WHITE BLOOD COUNT 4.5 TH/MM3 (4.0-11.0)
[2017-10-10 12:59] LABS: BICARBONATE 25.3 MEQ/L (21.0-32.0); BLOOD UREA NITROGEN 16 MG/DL (7-18); CALCIUM 8.9 MG/DL (8.5-10.1); CHLORIDE 107 MEQ/L (98-107); CREATININE 0.48 MG/DL (0.50-1.00); GLOMERULAR FILTRATION RATE 125 ML/MIN (>89); GLUCOSE,RANDOM 86 MG/DL (74-106); SODIUM (NA) 140 MEQ/L (136-145)
[2017-10-10 13:04] LABS: TROPONIN I LESS THAN 0.02 NG/ML (0.02-0.05)
[2017-10-10] MEDS ORDERED: RANI150T PO (14:17)
[2017-10-10] MEDS ORDERED: HYOS1TAB9 PO (14:17)
[2017-10-10 14:20] VITALS: BP 208/72; PULSE 72; RESP 20; O2SAT 98
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
--- NOTE | 2017-10-11 15:56 | EKG ---
Date Performed: 10/10/2017 Time Performed: 11:55:42 PTAGE: 77 years EKG: Sinus rhythm NONSPECIFIC T-WAVE ABNORMALITY BORDERLINE ECG INTERPRETATION BASED ON A DEFAULT AGE OF 40 YEARS Sinc e the PREVIOUS TRACING , no significant change noted PREVIOUS TRACIN09/04/2017 15.40 DOCTOR: Jimmy Angel Interpretating Date/Time 10/11/2017 15:55:15
== END 2017-10-10 17:04 | disposition home or self-care (01) ==
LOC: NEPC 11:30
DX: R10.32 Left lower quadrant pain (principal); R19.7 Diarrhea, unspecified; R94.31 Abnormal electrocardiogram [ECG] [EKG]; F41.9 Anxiety disorder, unspecified; F32.9 Major depressive disorder, single episode, unspecified; G47.00 Insomnia, unspecified; M19.90 Unspecified osteoarthritis, unspecified site; F17.200 Nicotine dependence, unspecified, uncomplicated; Z79.899 Other long term (current) drug therapy
CPT/HCPCS: 71046; 80048; 82550; 84484; 85025; 93005; 99285